=== PATIENT | female | born 1945 | race Hispanic/Latino ===

== ENCOUNTER 2018-05-11 12:38 | Emergency (ER) | payer OTHER ==
[2018-05-11] MEDS ORDERED: KETOROLAC TROMETHAMINE 30MG/ML ONE ×2 (13:41→14:03)
[2018-05-11] MEDS ORDERED: DIAZEPAM 2 MG TAB ONE (14:38)
== END 2018-05-11 15:13 | disposition home or self-care (01) ==
LOC: EDH 12:38
DX: M62.838 Other muscle spasm (principal); Z90.49 Acquired absence of other specified parts of digestive tract; Z90.710 Acquired absence of both cervix and uterus; Z88.6 Allergy status to analgesic agent
CPT/HCPCS: 72100; 96372; 99283; J1885 ×2

== ENCOUNTER 2019-09-29 19:21 | Emergency (ER) | payer OTHER ==
[2019-09-29 20:41] LABS: BASOPHILS % (AUTO) 0.5 % (0.0-5.0); EOSINOPHILS % (AUTO) 0.5 % (0.0-8.0); HEMATOCRIT 37.5 % (36-48); LYMPHOCYTES % (AUTO) 14.3 % (21.0-51.0); MEAN CORPUSCULAR HEMOGLOBIN 30.9 pg (27.0-33.0); MEAN CORPUSCULAR HGB CONC 35.5 g/dL (32.0-36.0); MEAN CORPUSCULAR VOLUME 87.2 fL (79-99); MONOCYTES % (AUTO) 3.9 % (3.0-13.0); PLATELET COUNT (AUTO) 199 K/uL (130-400); RED CELL DISTRIBUTION WIDTH 13.6 % (11.0-15.5); WHITE BLOOD COUNT (AUTO) 13.5 K/uL (4.8-10.8)
[2019-09-29] MEDS ORDERED: LIDOCAINE 5% TOPICAL PATCH TP ONE (20:43)
[2019-09-29 21:14] LABS: POTASSIUM 4.1 mmol/L (3.5-5.1)
[2019-09-29 21:20] LABS: ALBUMIN 3.4 g/dL (3.5-5.0); BILIRUBIN,TOTAL 0.6 mg/dL (0.2-1.0)
[2019-09-29 22:02] LABS: CREATININE 0.6 mg/dL (0.5-1.5)
== END 2019-09-29 21:40 | disposition home or self-care (01) ==
LOC: EDH 19:21
DX: S30.0XXA Contusion of lower back and pelvis, initial encounter (principal); S00.01XA Abrasion of scalp, initial encounter; E11.9 Type 2 diabetes mellitus without complications; E78.00 Pure hypercholesterolemia, unspecified; I10 Essential (primary) hypertension; Z88.6 Allergy status to analgesic agent; Z88.8 Allergy status to other drugs, medicaments and biological substances; W18.39XA Other fall on same level, initial encounter; Y93.01 Activity, walking, marching and hiking; Y92.89 Other specified places as the place of occurrence of the external cause; Y99.8 Other external cause status
CPT/HCPCS: 36415; 70450; 72100; 72125; 80053; 85025

== ENCOUNTER → 2019-10-22 | Outpatient (CLI) | payer OTHER | END | disposition home or self-care (01) | LOC: RAH 12:28 | PROVIDERS: ATTEND Internal Medicine | DX: I70.0 Atherosclerosis of aorta (principal) | CPT/HCPCS: 72220 ==

== ENCOUNTER 2020-02-03 21:35 | Inpatient (IN) | payer OTHER ==
[~2020-02-03] VITALS: Ht 167.6 cm; Wt 90.9 kg
[2020-02-03] MEDS ORDERED: ONDANSETRON HCL 4 MG/2 ML VIAL ONE (22:07)
[2020-02-03 22:33] LABS: BASOPHILS % (AUTO) 0.3 % (0.0-5.0); EOSINOPHILS % (AUTO) 0.6 % (0.0-8.0); HEMATOCRIT 32.7 % (36-48); LYMPHOCYTES % (AUTO) 35.5 % (21.0-51.0); MEAN CORPUSCULAR HEMOGLOBIN 29.3 pg (27.0-33.0); MEAN CORPUSCULAR HGB CONC 35.5 g/dL (32.0-36.0); MEAN CORPUSCULAR VOLUME 82.6 fL (79-99); MONOCYTES % (AUTO) 8.1 % (3.0-13.0); NEUTROPHILS % (AUTO) 54.2 % (40.0-77.0); PLATELET COUNT (AUTO) 191 K/uL (130-400); RED BLOOD CELL COUNT(AUTO) 3.96 MIL/uL (4.00-5.50); RED CELL DISTRIBUTION WIDTH 12.5 % (11.0-15.5); WHITE BLOOD COUNT (AUTO) 9.3 K/uL (4.8-10.8)
[2020-02-03 22:41] LABS: APPEARANCE,URINE Clear (CLEAR); BILIRUBIN,URINE Negative (NEGATIVE); COLOR,URINE Yellow (YELLOW); GLUCOSE, URINE (UA) Negative (NEGATIVE); KETONES,URINE Negative (NEGATIVE); LEUKOCYTE ESTERASE ,URINE Negative (NEGATIVE); NITRATE,URINE Negative (NEGATIVE); OCCULT BLOOD,URINE Negative (NEGATIVE); PROTEIN,URINE 300 mg/dL (NEGATIVE)
[2020-02-03 22:53] LABS: INR 0.89 (0.85-1.15); PARTIAL THROMBOPLASTIN TIME 27.9 SEC (26.3-35.5); PROTHROMBIN TIME 9.7 SEC (9.6-11.6)
[2020-02-03 22:55] LABS: B-TYPE NATRIURETIC PEPTIDE 88 pg/mL (0-100)
[2020-02-03 23:08] LABS: ALBUMIN 3.4 g/dL (3.5-5.0); BILIRUBIN,TOTAL 0.5 mg/dL (0.2-1.0); CREATININE 1.3 mg/dL (0.5-1.5); POTASSIUM 4.1 mmol/L (3.5-5.1); THYROID STIMULATING HORMONE 2.07 uIU/mL (0.36-3.74)
[2020-02-04] MEDS ORDERED: IOHEXOL-350 75 ML VIAL IV ONE (00:34)
[2020-02-04] MEDS ORDERED: LORAZEPAM 2 MG/ML 1 ML VIAL ONE (01:35)
[2020-02-04] MEDS ORDERED: SODIUM CHLORIDE 0.9% 1000ML 1,000 ML IV SCH (01:39)
[2020-02-04] MEDS ORDERED: ONDANSETRON HCL 4 MG/2 ML VIAL IV PRN (01:45)
[2020-02-04] MEDS ORDERED: ACETAMINOPHEN 325 MG TAB PO PRN ×2 (01:45)
[2020-02-04] MEDS ORDERED: METRONIDAZOLE 500MG/100ML BAG 100 ML ONE ×2 (02:26→09:11)
[2020-02-04] MEDS ORDERED: ZOSYN 3.375GM+NS 50ML 50 ML IV ONE ×2 (02:26→10:32)
[2020-02-04] MEDS ORDERED: HYDRALAZINE HCL 20 MG/ML VIAL IV PRN (03:00)
[2020-02-04] MEDS ORDERED: METOPROLOL TARTRATE 1 MG/ML 5ML VIAL IV PRN (03:00)
[2020-02-04] MEDS: INSULIN HUMULIN R 100 UNIT/ML 3ML SQ SCH ×5 (07:30→21:00)
[2020-02-04] MEDS: FAMOTIDINE/PF 20 MG/2 ML VIAL IV SCH (09:00)
[2020-02-04] MEDS: ZOSYN 3.375GM+NS 50ML 50 ML IV SCH ×2 (09:00→17:48)
[2020-02-04] MEDS ORDERED: METOPROLOL TARTRATE 1 MG/ML 5ML VIAL IV ONE (09:11)
[2020-02-04] MEDS ORDERED: FAMOTIDINE/PF 20 MG/2 ML VIAL IV ONE (09:11)
[2020-02-04] MEDS ORDERED: POLYETHYLENE GLYCOL 3350 17 GM POWD.PACK PO SCH (09:45)
[2020-02-04] MEDS ORDERED: BISACODYL 10 MG SUPP.RECT RC SCH (09:45)
[2020-02-04] MEDS ORDERED: HYDRALAZINE HCL 20 MG/ML VIAL ONE (09:47)
[2020-02-04 09:52] LABS: ALBUMIN 3.2 g/dL (3.5-5.0); BILIRUBIN,TOTAL 0.7 mg/dL (0.2-1.0); CREATININE 1.1 mg/dL (0.5-1.5); MAGNESIUM 1.8 mg/dL (1.80-2.40); TOTAL PROTEIN, SERUM 6.7 g/dL (6.0-8.3)
[2020-02-04] MEDS ORDERED: AMLODIPINE BESYLATE 5 MG TAB ONE (09:59)
[2020-02-04] MEDS ORDERED: BISACODYL 10 MG SUPP.RECT RC ONE (09:59)
[2020-02-04] MEDS: METRONIDAZOLE 500MG/100ML BAG 100 ML IV SCH ×2 (10:00→18:21)
[2020-02-04] MEDS: LOSARTAN 50 MG TABLET PO SCH ×2 (10:00→21:22)
[2020-02-04] MEDS ORDERED: POLYETHYLENE GLYCOL 3350 17 GM POWD.PACK ONE (10:00)
[2020-02-04] MEDS ORDERED: LOSARTAN 50 MG TABLET ONE (10:00)
[2020-02-04] MEDS ORDERED: INSULIN HUMULIN R 100 UNIT/ML 3ML ONE (12:39)
[2020-02-04] MEDS ORDERED: GLIP5TAB11 PO (15:16)
[2020-02-04] MEDS ORDERED: CALC-691 PO (15:16)
[2020-02-04] MEDS ORDERED: AMLO5TAB9 PO (15:16)
[2020-02-04] MEDS ORDERED: ZIAC5 PO (15:16)
[2020-02-04] MEDS ORDERED: ACET-2743 PO (15:16)
[2020-02-04] MEDS ORDERED: METF-446 PO (15:16)
[2020-02-04] MEDS ORDERED: MULT-1296 PO (15:16)
[2020-02-04] MEDS ORDERED: VIT B12 PO (15:16)
[2020-02-04] MEDS ORDERED: OMEG100014 PO (15:16)
[2020-02-04] MEDS ORDERED: MULT-1192 PO (15:16)
[2020-02-04] MEDS ORDERED: LOSA100T58 PO (15:16)
[2020-02-04] MEDS ORDERED: ATOR-2 PO (15:16)
[2020-02-04] MEDS ORDERED: ASPI-1197 PO (15:16)
[2020-02-04] MEDS ORDERED: DOCU-116 PO (15:16)
[2020-02-04 15:49] VITALS: BP 145/45
--- NOTE | 2020-02-04 16:30 | NUR ---
REBEKA, DAUGHTER , CONTACTED FOR DC PLANNING CONTACTED BY [facility] FOR [place]- REBEKA STATES PATIENT LIVES WITH HER; IS INDPENDEN AND USES NO DME. HOME SAFE AND ACCESSIBLE.DC PLAN IS HOME WITH REBEKA WHO SUPPLIES TRANSPORT CM TO FOLLOW. HAYDEN ORTIZ ON THIS ADMIT Addendum: 02/05/20 at 1930 by SEE JOSE RN CM Amended: Links added.
[2020-02-04] MEDS: AMLODIPINE BESYLATE 5 MG TAB PO SCH (16:34)
[2020-02-04] MEDS ORDERED: SODIUM CHLORIDE 0.9% 500ML 500 ML IV ONE (17:46)
--- NOTE | 2020-02-04 18:40 | NUR ---
HYDROSCAN PT LEFT FOR HYDROSCAN, A/A X 3 WITH VS STABLE.
[2020-02-04 21:05] VITALS: BP 158/78
--- NOTE | 2020-02-04 21:05 | NUR ---
HIDA SCAN BACK FROM HIDA SCAN , RESULTS PENDING , PATIENT AWAKE, ALERT, OX3, NO SOB, NO C/O PAIN AT THIS TIME,CONTINUE ON CLEAR LIQUID
[2020-02-05] VITALS (31 sets, daily range): BP systolic 110–201; BP diastolic 44–71
[2020-02-05] MEDS: ZOSYN 3.375GM+NS 50ML 50 ML IV SCH ×3 (01:19→17:05)
[2020-02-05] MEDS: METRONIDAZOLE 500MG/100ML BAG 100 ML IV SCH ×3 (01:20→19:01)
[2020-02-05 05:27] LABS: BASOPHILS % (AUTO) 0.5 % (0.0-5.0); EOSINOPHILS % (AUTO) 0.7 % (0.0-8.0); HEMATOCRIT 30.1 % (36-48); LYMPHOCYTES % (AUTO) 28.4 % (21.0-51.0); MEAN CORPUSCULAR HEMOGLOBIN 29.5 pg (27.0-33.0); MEAN CORPUSCULAR HGB CONC 34.6 g/dL (32.0-36.0); MEAN CORPUSCULAR VOLUME 85.3 fL (79-99); MONOCYTES % (AUTO) 6.3 % (3.0-13.0); NEUTROPHILS % (AUTO) 63.7 % (40.0-77.0); PLATELET COUNT (AUTO) 174 K/uL (130-400); RED BLOOD CELL COUNT(AUTO) 3.53 MIL/uL (4.00-5.50); RED CELL DISTRIBUTION WIDTH 13.1 % (11.0-15.5); WHITE BLOOD COUNT (AUTO) 7.4 K/uL (4.8-10.8)
[2020-02-05 05:37] LABS: CREATININE 1.2 mg/dL (0.5-1.5); POTASSIUM 3.8 mmol/L (3.5-5.1); THYROID STIMULATING HORMONE 0.99 uIU/mL (0.36-3.74); URIC ACID 4.4 mg/dL (2.6-7.2)
--- NOTE | 2020-02-05 06:15 | NUR ---
MD CALL RESULT CALLED DR. FISHER VIA PAGER TO INFORMED HIM OF HIDA SCAN RESULT, AWAITING CALL BACK
[2020-02-05] MEDS: INSULIN HUMULIN R 100 UNIT/ML 3ML SQ SCH ×8 (06:26→20:31)
--- NOTE | 2020-02-05 06:43 | NUR ---
RESULTS SPOKE TO DR. FISHER VIA PHONE RELATED HIDA SCAN RESULTS,GI WILL SIGN OFF, FOLLOW UP WITH SURGERY
[2020-02-05] MEDS: FAMOTIDINE/PF 20 MG/2 ML VIAL IV SCH (09:38)
[2020-02-05] MEDS: LOSARTAN 50 MG TABLET PO SCH ×2 (09:38→20:15)
[2020-02-05] MEDS: HYDROCODONE/ACETAMINOPHEN 5/325 MG TAB PO PRN ×2 (09:42→22:53)
[2020-02-05] MEDS ORDERED: LABETALOL 20 MG/4 ML DISP.SYRIN IV PRN (12:15)
[2020-02-05] MEDS: SODIUM CHLORIDE 0.9% 1000ML 1,000 ML IV SCH (12:46)
[2020-02-05] MEDS ORDERED: LABETALOL HCL 5 MG/ML 20ML VIAL IV PRN (13:00)
[2020-02-05] MEDS ORDERED: METOCLOPRAMIDE 10 MG/2 ML VIAL ONE (15:50)
[2020-02-05] MEDS ORDERED: CITRIC ACID/SODIUM CITRATE 30 ML UDCUP ONE (15:51)
[2020-02-05] MEDS ORDERED: ONDANSETRON HCL 4 MG/2 ML VIAL ONE (15:58)
[2020-02-05] MEDS ORDERED: LIDOCAINE PF 2% 5ML ABBOJECT ONE (15:58)
[2020-02-05] MEDS ORDERED: SUCCINYLCHOLINE CHLORIDE 20 MG/ML 10 ML VIAL ONE (15:58)
[2020-02-05] MEDS ORDERED: PROPOFOL 10 MG/ML 20ML VIAL IV ONE (15:59)
[2020-02-05] MEDS ORDERED: FENTANYL CITRATE PF 50 MCG/1 ML 2ML VIAL ONE (15:59)
[2020-02-05] MEDS ORDERED: ROCURONIUM 10MG/1ML SYR 10 MG/ML ML ONE (15:59)
[2020-02-05] MEDS ORDERED: BUPIVACAINE/PF 0.5% 30ML VIAL ONE (16:30)
[2020-02-05] MEDS ORDERED: EPHEDRINE SULFATE 50 MG/ML AMPULE ONE (16:38)
[2020-02-05] MEDS ORDERED: GLYCOPYRROLATE 1 MG/5 ML SYRINGE ONE (16:51)
[2020-02-05] MEDS ORDERED: NEOSTIGMINE 5MG/5ML SYR IV ONE (16:51)
[2020-02-05] MEDS ORDERED: HYDRALAZINE HCL 20 MG/ML VIAL IV ONE (17:20)
[2020-02-05] MEDS ORDERED: MEPERIDINE-PF 25 MG/ML SYG ONE (17:39)
--- NOTE | 2020-02-05 20:00 | NUR ---
assessment note patient resting comfortably, nad, ivf infusing well, abdomen with bandaid x5 d/i , ble scds in place, teach patient deep breathing exercises, teach patient plan of care and expected outcome, patient verbalizes understanding via teach back, rt to perform is as ordered
--- NOTE | 2020-02-06 | NUR ---
nursing obs resting comfortably, abdominal bandaids intact x5, ivf infusing well, no c/o pain , call best at reach
[2020-02-06] MEDS: ZOSYN 3.375GM+NS 50ML 50 ML IV SCH ×3 (00:11→16:49)
[2020-02-06] MEDS: SODIUM CHLORIDE 0.9% 1000ML 1,000 ML IV SCH (00:17)
[2020-02-06] MEDS: METRONIDAZOLE 500MG/100ML BAG 100 ML IV SCH ×3 (01:24→17:30)
[2020-02-06 03:48] VITALS: BP 137/46
[2020-02-06] MEDS: INSULIN HUMULIN R 100 UNIT/ML 3ML SQ SCH ×8 (05:24→21:36)
[2020-02-06 06:13] LABS: BASOPHILS % (AUTO) 0.5 % (0.0-5.0); EOSINOPHILS % (AUTO) 1.3 % (0.0-8.0); HEMATOCRIT 28.9 % (36-48); LYMPHOCYTES % (AUTO) 14.2 % (21.0-51.0); MEAN CORPUSCULAR HEMOGLOBIN 29.7 pg (27.0-33.0); MEAN CORPUSCULAR HGB CONC 33.2 g/dL (32.0-36.0); MEAN CORPUSCULAR VOLUME 89.5 fL (79-99); MONOCYTES % (AUTO) 8.5 % (3.0-13.0); NEUTROPHILS % (AUTO) 75.2 % (40.0-77.0); PLATELET COUNT (AUTO) 190 K/uL (130-400); RED BLOOD CELL COUNT(AUTO) 3.23 MIL/uL (4.00-5.50); RED CELL DISTRIBUTION WIDTH 13.2 % (11.0-15.5); WHITE BLOOD COUNT (AUTO) 8.7 K/uL (4.8-10.8)
[2020-02-06 06:41] LABS: ALBUMIN 2.4 g/dL (3.5-5.0); BILIRUBIN,TOTAL 0.5 mg/dL (0.2-1.0); CREATININE 1.3 mg/dL (0.5-1.5); TOTAL PROTEIN, SERUM 5.4 g/dL (6.0-8.3)
[2020-02-06 08:08] VITALS: BP 143/47
[2020-02-06] MEDS: FAMOTIDINE/PF 20 MG/2 ML VIAL IV SCH (09:12)
[2020-02-06] MEDS: LOSARTAN 50 MG TABLET PO SCH ×2 (09:12→21:15)
[2020-02-06] MEDS: AMLODIPINE BESYLATE 5 MG TAB PO SCH (09:13)
[2020-02-06] MEDS: HYDROCODONE/ACETAMINOPHEN 5/325 MG TAB PO PRN ×2 (09:15→16:50)
--- NOTE | 2020-02-06 09:23 | NUR ---
DC LIU PER MD ORDER USING CLEAN TECHNIQUE REMOVED LIU CATHETER. PT TOLERATED WELL PENDING TO VOID. WILL CONTINUE TO MONITOR. 08/08/19 1230: PT VOIDED CLEAR YELLOW URINE.
[2020-02-06] MEDS ORDERED: METR500T PO (09:27)
[2020-02-06] MEDS ORDERED: LEVO500T2 PO (09:27)
[2020-02-06 11:57] VITALS: BP 138/48
[2020-02-06 16:36] VITALS: BP 127/51
[2020-02-06 19:30] VITALS: BP 145/38
[2020-02-06 23:39] VITALS: BP 142/36
[2020-02-07] MEDS: METRONIDAZOLE 500MG/100ML BAG 100 ML IV SCH ×2 (01:32→09:42)
[2020-02-07] MEDS: ZOSYN 3.375GM+NS 50ML 50 ML IV SCH ×2 (01:32→09:42)
[2020-02-07] MEDS: SODIUM CHLORIDE 0.9% 1000ML 1,000 ML IV SCH (01:37)
[2020-02-07 03:45] VITALS: BP 156/41
[2020-02-07] MEDS: INSULIN HUMULIN R 100 UNIT/ML 3ML SQ SCH ×3 (06:03→16:30)
[2020-02-07 07:07] LABS: BASOPHILS % (AUTO) 0.6 % (0.0-5.0); EOSINOPHILS % (AUTO) 4.4 % (0.0-8.0); HEMATOCRIT 25.7 % (36-48); MEAN CORPUSCULAR HEMOGLOBIN 29.6 pg (27.0-33.0); MEAN CORPUSCULAR HGB CONC 33.1 g/dL (32.0-36.0); MEAN CORPUSCULAR VOLUME 89.5 fL (79-99); MONOCYTES % (AUTO) 8.3 % (3.0-13.0); PLATELET COUNT (AUTO) 168 K/uL (130-400); RED BLOOD CELL COUNT(AUTO) 2.87 MIL/uL (4.00-5.50); RED CELL DISTRIBUTION WIDTH 13.1 % (11.0-15.5); WHITE BLOOD COUNT (AUTO) 8.2 K/uL (4.8-10.8)
[2020-02-07] MEDS ORDERED: LACTULOSE 20 GM/30 ML UDCUP ONE (07:12)
[2020-02-07 07:32] LABS: CREATININE 1.3 mg/dL (0.5-1.5); POTASSIUM 3.6 mmol/L (3.5-5.1)
[2020-02-07 08:37] VITALS: BP 181/47
[2020-02-07] MEDS ORDERED: LACTULOSE 20 GM/30 ML UDCUP PO SCH (08:53)
[2020-02-07] MEDS: LOSARTAN 50 MG TABLET PO SCH (09:42)
[2020-02-07] MEDS: AMLODIPINE BESYLATE 5 MG TAB PO SCH (09:42)
[2020-02-07] MEDS: FAMOTIDINE/PF 20 MG/2 ML VIAL IV SCH (09:42)
[2020-02-07] MEDS ORDERED: BISACODYL 10 MG SUPP.RECT RC SCH (09:45)
[2020-02-07] MEDS: HYDROCODONE/ACETAMINOPHEN 5/325 MG TAB PO PRN (10:02)
--- NOTE | 2020-02-07 10:57 | NUR ---
WALKING IN HALLWAY WITH PCP STANDING BY. PT. CONSULT IN PLACE AND HAS NOW TAKEN OVER THE AMBULATION.
[2020-02-07 11:48] VITALS: BP 138/51
[2020-02-07 16:14] VITALS: BP 140/51
--- NOTE | 2020-02-07 18:00 | NUR ---
discharged now using teach back, saline lock removed . dc inst. given with rx for pain given. will follow up with dr. doimngo in 1 to 2 weeks. office number given and will call in am for appt.band aids to sm surg wounds changed and verbalizes understanding of all inst.
== END 2020-02-07 18:30 | disposition home or self-care (01) | DRG 418 ==
LOC: EDH 21:35 → EDHIP 02-04 01:39 → OBSVTOIN 02-04 01:39 → 3CH 02-04 14:43
PROVIDERS: ADMIT Internal Medicine; ATTEND Internal Medicine
PROC: 0FT44ZZ Resection of Gallbladder, Percutaneous Endoscopic Approach (ICD-10-PCS; principal; 2020-02-05 16:30)
DX: K80.00 Calculus of gallbladder with acute cholecystitis without obstruction (principal); E87.2 Acidosis; E87.1 Hypo-osmolality and hyponatremia; Z20.828 Contact with and (suspected) exposure to other viral communicable diseases; I10 Essential (primary) hypertension; E78.5 Hyperlipidemia, unspecified; E11.9 Type 2 diabetes mellitus without complications; I16.0 Hypertensive urgency; K59.00 Constipation, unspecified; Z90.710 Acquired absence of both cervix and uterus; K82.8 Other specified diseases of gallbladder; E27.8 Other specified disorders of adrenal gland; K66.0 Peritoneal adhesions (postprocedural) (postinfection)
CPT/HCPCS: 36415; 71045; 74018; 74177; 76705; 78226; 80048; 80053; 81003; 82533; 82550; 82948; 83605; 83690; 83735; 83880; 83930; 83935; 84300; 84443; 84484; 84550; 85025; 85610; 85730; 87040; 87426; 88304; 93005; 97039; A9537; G0378; J0330; J0360; J1815; J2001; J2060; J2175; J2405; J2543; J2704; J2710; J2765; J3010; J3490; J7030; J7040; Q9967; U0003

== ENCOUNTER → 2021-01-13 | Outpatient (CLI) | payer OTHER ==
[~2021-01-13] MED LIST: ACET-2743 PO; AMLO-257 PO; ASPI-1197 PO; ATOR-2 PO; CALC-691 PO; DOCU-116 PO; GLIP5TAB11 PO; LEVO500T2 PO; LOSA100T58 PO; METF-446 PO; METR500T PO; MULT-1192 PO; MULT-1296 PO; OMEG100014 PO; VIT B12 PO
== END | disposition home or self-care (01) ==
LOC: RAH 11:26
PROVIDERS: ATTEND Internal Medicine Gastroenterology
DX: K59.00 Constipation, unspecified (principal)
CPT/HCPCS: 74018

== ENCOUNTER → 2021-07-05 | Outpatient (CLI) | payer OTHER | END | disposition home or self-care (01) | LOC: RAH 08:58 | PROVIDERS: ATTEND Internal Medicine | DX: I70.1 Atherosclerosis of renal artery (principal); I12.9 Hypertensive chronic kidney disease with stage 1 through stage 4 chronic kidney disease, or unspecified chronic kidney disease; N18.9 Chronic kidney disease, unspecified; N28.1 Cyst of kidney, acquired | CPT/HCPCS: 76770; 93975 ==

== ENCOUNTER → 2021-11-22 | Outpatient (CLI) | payer OTHER | END | disposition home or self-care (01) | LOC: RAH 12:39 | PROVIDERS: ATTEND Internal Medicine | DX: M77.52 Other enthesopathy of left foot and ankle (principal); M25.512 Pain in left shoulder; W19.XXXA Unspecified fall, initial encounter | CPT/HCPCS: 73030; 73070; 73090; 73100; 73560; 73600 ==

== ENCOUNTER → 2021-12-14 | Outpatient (CLI) | payer OTHER | END | disposition home or self-care (01) | LOC: RAH 07:13 | PROVIDERS: ATTEND Internal Medicine Gastroenterology | DX: K30 Functional dyspepsia (principal); R14.0 Abdominal distension (gaseous) | CPT/HCPCS: 78264; A9541 ==

== ENCOUNTER → 2022-07-10 | Outpatient (CLI) | payer OTHER | END | disposition home or self-care (01) | LOC: RAH 12:11 | PROVIDERS: ATTEND Internal Medicine | DX: I35.8 Other nonrheumatic aortic valve disorders (principal); I51.7 Cardiomegaly; I65.23 Occlusion and stenosis of bilateral carotid arteries; R55 Syncope and collapse | CPT/HCPCS: 93306; 93880 ==

== ENCOUNTER → 2022-10-16 | Outpatient (CLI) | payer OTHER ==
[~2022-10-16] MED LIST changes: -LOSA100T58 PO; +LOSA100T59 PO; +REGADENOSON 0.4 MG/5 ML PF SYG IVP ONE
== END | disposition home or self-care (01) ==
LOC: SHCH 08:15
PROVIDERS: ATTEND Internal Medicine Cardiovascular Disease
DX: I20.9 Angina pectoris, unspecified (principal)
CPT/HCPCS: 78452; 96374; 93017; J2785; A9500 ×2

== ENCOUNTER → 2023-11-13 | Outpatient (CLI) | payer OTHER ==
[~2023-11-13] MED LIST changes: -GLIP5TAB11 PO; +GLIP5TAB15 PO; -REGADENOSON 0.4 MG/5 ML PF SYG IVP ONE
== END | disposition home or self-care (01) ==
LOC: SHCH 12:36
PROVIDERS: ATTEND Internal Medicine Cardiovascular Disease
DX: I70.293 Other atherosclerosis of native arteries of extremities, bilateral legs (principal); I87.2 Venous insufficiency (chronic) (peripheral); I87.1 Compression of vein
CPT/HCPCS: 93925; 93970

== ENCOUNTER → 2024-09-24 | Outpatient (CLI) | payer OTHER ==
[2024-09-24 12:08] LABS: CREATININE 1.9 mg/dL (0.5-1.0); POTASSIUM 5.2 mmol/L (3.5-5.1)
== END | disposition home or self-care (01) ==
LOC: LAB 10:26
PROVIDERS: ATTEND Physician Assistant
DX: I25.10 Atherosclerotic heart disease of native coronary artery without angina pectoris (principal)
CPT/HCPCS: 36415; 80048

== ENCOUNTER → 2024-10-01 | Outpatient (CLI) | payer OTHER ==
[2024-10-01 16:27] LABS: CREATININE 1.8 mg/dL (0.5-1.0); POTASSIUM 4.9 mmol/L (3.5-5.1)
== END | disposition home or self-care (01) ==
LOC: LAB 11:34
PROVIDERS: ATTEND Internal Medicine Cardiovascular Disease
DX: I10 Essential (primary) hypertension (principal)
CPT/HCPCS: 36415; 80048

== ENCOUNTER → 2024-12-01 | Outpatient (CLI) | payer OTHER ==
[2024-12-01] MEDS: REGADENOSON 0.4 MG/5 ML PF SYG IVP ONE (10:58)
== END | disposition home or self-care (01) ==
LOC: SHCH 08:34
PROVIDERS: ATTEND Internal Medicine Cardiovascular Disease
DX: I20.0 Unstable angina (principal); R06.00 Dyspnea, unspecified
CPT/HCPCS: 78452; 93017; J2785; A9500 ×2